=== PATIENT | female | born 1965 | race Caucasian/White ===

== ENCOUNTER 2022-05-17 15:07 | Emergency (ER) | payer OTHER, SELFPAY ==
--- NOTE | 2022-05-17 15:09 | ED_ITS ---
HPI - Allergic Reaction General Chief complaint: General Medical <Gillian Guerrero CNP - Last Filed: 05/17/22 15:21> Stated complaint: ? allergic reaction to meds <Gillian Guerrero CNP - Last Filed: 05/17/22 15:21> Time Seen by Provider: 05/17/22 16:55 <Gillian Guerrero CNP - Last Filed: 05/17/22 15:21> Source: patient <Vikas Garcia MD - Last Filed: 05/18/22 00:23> Mode of arrival: ambulatory <Vikas Garcia MD - Last Filed: 05/18/22 00:23> Limitations: no limitations <Vikas Garcia MD - Last Filed: 05/18/22 00:23> History of Present Illness HPI narrative: Patient 56 years old with history of anxiety, restless leg syndrome on Suboxone started on Akosua for weight reduction she took for scapular 10:00 within half an hour that patient started feeling anxious moving her legs feel funny in her body hot feeling very restless since he took the pills patient never took this pill before no itching no rash <Vikas Garcia MD - Last Filed: 05/18/22 00:23> Related Data Allergies/adverse reactions: Allergies Allergy/AdvReac Type Severity Reaction Status Date / Time ropinirole [From Requip] Allergy Anaphylaxis Verified 05/17/22 15:16 sulfamethoxazole Allergy Hives Verified 05/17/22 15:16 [From Bactrim] tioconazole Allergy Vomiting Verified 05/17/22 15:16 [From Monistat 1 (tioconazole)] trimethoprim [From Bactrim] Allergy Hives Verified 05/17/22 15:16 <Gillian Guerrero CNP - Last Filed: 05/17/22 15:21> Review of Systems Review of Systems: Yes all other systems are reviewed and are negative <Vikas Garcia MD - Last Filed: 05/18/22 00:23> PMFSH Social History Social History: Social History Alcohol intake: current Alcohol intake frequency: holidays/special occasions only Smoked in Last 30 Days: No Use of substances other than those prescribed or required for medical reasons: No Advance Directives: Yes Advance Directives Information Provided: No Advance Directives on File: No <Gillian Rodriguezlouisa Guerrero CNP - Last Filed: 05/17/22 15:21> Physical Exam ED Vital Signs: Vital Signs - 24 hr 05/17/22 15:11 05/17/22 15:55 05/17/22 16:25 Temperature 97.3 F 98.4 F 98.4 F Pulse Rate 86 76 79 Respiratory Rate 18 Blood Pressure 145/94 H 133/83 143/82 H Pulse Oximetry 100 100 98 Oxygen Delivery Method Room Air Room Air Room Air 05/17/22 19:28 Temperature 98.2 F Pulse Rate 76 Respiratory Rate 12 Blood Pressure 107/70 Pulse Oximetry 98 Oxygen Delivery Method Room Air BMI result Body Mass Index 29.2 <Gillian Toscano CECILLE Guerrero - Last Filed: 05/17/22 15:21> Vital Signs - 24 hr 05/17/22 15:11 05/17/22 15:55 05/17/22 16:25 Temperature 97.3 F 98.4 F 98.4 F Pulse Rate 86 76 79 Respiratory Rate 18 Blood Pressure 145/94 H 133/83 143/82 H Pulse Oximetry 100 100 98 Oxygen Delivery Method Room Air Room Air Room Air 05/17/22 19:28 Temperature 98.2 F Pulse Rate 76 Respiratory Rate 12 Blood Pressure 107/70 Pulse Oximetry 98 Oxygen Delivery Method Room Air BMI result Body Mass Index 29.2 <Vikas Garcia MD - Last Filed: 05/18/22 00:23> Appearance: Alert. Oriented X3. No acute distress. Axious Eyes: PERRLA, No Nystagmus ENT: Pharynx normal. Oral Mucosa moist Neck: Normal inspection. Neck supple. CVS: Normal heart rate and rhythm. Pulses normal. Respiratory: No respiratory distress. Equal air entry bilateral, no wheezing/rales/rhonchi Abdomen: Soft and nontender. Bowel sounds are present, Skin: Skin warm and dry. Normal skin color. Normal skin turgor. Extremities: No lower extremity edema. No calf tenderness Neuro: Oriented X 3. No motor deficit. No sensory deficit.No cerebellar signs , cranial nerves II-XII intact <Vikas Garcia MD - Last Filed: 05/18/22 00:23> Course Course Course Narrative: This is an RME: Additional HPI, ROS, PE not included below will be deferred to primary provider. States Clinical Informatics Specialist prescribed Akosua (bupropion/phenteramine/topiramate/naltrexone/methylcobalamin) for WT loss promotion, took for the first time today. took at 0930. About 30 minutes later began feeling hot, then cold, having severe anxiety, foggy , chest tightness, palpitations, legs feel abnormal. She is tearful, states she has never felt like today. She is taking suboxone (to wean off Vicodin) this medication is not new, she toold this after her symptoms began today but is not feeling any better Plan: Lorazepam PO <Gillian Guerrero CNP - Last Filed: 05/17/22 15:21> Medications Administered Discontinued Medications Generic Name Dose Route Start Last Admin Trade Name Freq PRN Reason Stop Dose Admin Diphenhydramine HCl 25 mg 05/17/22 17:17 05/17/22 17:30 Diphenhydramine Hcl 50 Mg/Ml Vial IVPUSH 05/17/22 17:18 25 mg ONCE ONE Administration Sodium Chloride 1,000 mls @ 999 mls/hr 05/17/22 17:19 05/17/22 17:40 Ns IV 05/17/22 18:19 999 mls/hr .Q1H1M ONE Administration Lorazepam 1 mg 05/17/22 15:21 05/17/22 16:17 Lorazepam 1 Mg Tablet PO 05/17/22 15:22 1 mg ONCE ONE Administration Lorazepam 1 mg 05/17/22 17:17 05/17/22 17:30 Lorazepam 2 Mg/Ml Vial IVPUSH 05/17/22 17:18 1 mg ONCE ONE Administration <Gillian Guerrero CNP - Last Filed: 05/17/22 15:21> Medications Administered Discontinued Medications Generic Name Dose Route Start Last Admin Trade Name Freq PRN Reason Stop Dose Admin Diphenhydramine HCl 25 mg 05/17/22 17:17 05/17/22 17:30 Diphenhydramine Hcl 50 Mg/Ml Vial IVPUSH 05/17/22 17:18 25 mg ONCE ONE Administration Sodium Chloride 1,000 mls @ 999 mls/hr 05/17/22 17:19 05/17/22 17:40 Ns IV 05/17/22 18:19 999 mls/hr .Q1H1M ONE Administration Lorazepam 1 mg 05/17/22 15:21 05/17/22 16:17 Lorazepam 1 Mg Tablet PO 05/17/22 15:22 1 mg ONCE ONE Administration Lorazepam 1 mg 05/17/22 17:17 05/17/22 17:30 Lorazepam 2 Mg/Ml Vial IVPUSH 05/17/22 17:18 1 mg ONCE ONE Administration <Vikas Garcia MD - Last Filed: 05/18/22 00:23> Discharge Plan Discharge Clinical Impression: Medication adverse effect <Gillian Guerrero CNP - Last Filed: 05/17/22 15:21> Patient Disposition: Home, Self-Care <Gillian Guerrero CNP - Last Filed: 05/17/22 15:21> Instructions: General Allergic Reaction (ED) <Gillian Guerrero CNP - Last Filed: 05/17/22 15:21> Additional Instructions: Stop taking the new medication for weight reduction Rest at home <Gillian Guerrero CNP - Last Filed: 05/17/22 15:21> Interventions: ED Discharge Assessment Last Done: 05/17/22 19:34 <Gillian Guerrero CNP - Last Filed: 05/17/22 15:21> Discharge Date/Time: 05/17/22 19:35 <Gillian Guerrero CNP - Last Filed: 05/17/22 15:21>
[2022-05-17 15:11] VITALS: BP 145/94; PULSE 86; RESP 18; TEMP 36.3; O2SAT 100; BMI 29.2
[2022-05-17 15:55] VITALS: BP 133/83; PULSE 76; TEMP 36.9; O2SAT 100
--- OUTSIDE RECORDS SUMMARY | 2022-05-17 15:59 | XMS_ITS | Continuity of Care Document ---
:1965 Author Organization Address [address] [place] [address]- Care Team Providers Name Role Phone Not on Staff, PCP Primary Care Physician Unavailable Encounter [facility] Date(s): 07/05/19 - 07/05/[address] [address]- [facility] Attending Physician: Talon Aiken MD Allergies, Adverse Reactions, Alerts Substance Reaction Severity Status sulfa drugs Active Requip tongue swelling Active Monistat Derm burning Active Medications Ambien Tablet = 5 mg, By Mouth, Daily at bedtime, 0 Refills Start Date: 06/08/08 Status: OrderedKlonoPIN 1 mg oral tablet 1 tablet = 1 mg, By Mouth, 2 times a day, PRN Anxiety, 0 Refills, Maintenance, 04/13/17 12:45:58 Start Date: 04/13/17 Status: Orderedlevothyroxine 0.075 mg oral tablet 1 tab, By Mouth, Daily, 0 Refills, Maintenance, 12/08/18 5:34:19 EDT Start Date: 12/08/18 Status: OrderedPaxil Tablet 20 mg, By Mouth, Daily, Maintenance, 01/21/11 22:55:21 Start Date: 01/21/11 Status: OrderedVicodin 5 mg-300 mg oral tablet 2 tablet, By Mouth, Daily at bedtime, 0 Refills, Maintenance, 12/08/18 5:33:48 EDT, Tablet, Partial fill upon patient request Start Date: 12/08/18 Status: Ordered Problem List Condition Effective Dates Status Health Status Informant Rhytide of forehead(Confirmed) Active Social History Social History Type Response Smoking Status Never (less than 100 in life time) entered on: 12/08/18 Sex
--- OUTSIDE RECORDS SUMMARY | 2022-05-17 16:00 | XMS_ITS | Continuity of Care Document ---
:1965 Author Organization [facility] Address [address] [place] [address]- Care Team Providers Name Role Phone Not on Staff, PCP Primary Care Physician Unavailable Encounter [facility] Date(s): 05/15/19 - 05/22/[address] [address]- [facility] Attending Physician: Talon Aiken MD Allergies, Adverse [...]
--- OUTSIDE RECORDS SUMMARY | 2022-05-17 16:00 | XMS_ITS | Continuity of Care Document ---
:1965 Author Organization [facility] Address [address] [place] [address]- Care Team Providers Name Role Phone Talon Aiken MD Primary Care Physician Encounter [facility] Date(s): 06/06/21 - 07/06/21 [facility] [address], [place] [address] Allergies, Adverse Reactions, Alerts Substance Reaction Severity [...]
[2022-05-17] MEDS: LORazepam 1 MG TABLET PO (16:17)
[2022-05-17 16:25] VITALS: BP 143/82; PULSE 79; TEMP 36.9; O2SAT 98
[2022-05-17] MEDS: LORazepam 2 MG/ML VIAL 1 MG IVPUSH (17:30)
[2022-05-17] MEDS: diphenhydrAMINE HCL 50 MG/ML VIAL 25 MG IVPUSH (17:30)
[2022-05-17] MEDS: 0.9 % Sodium Chloride 1,000 ML 999 ML IV (17:40)
[2022-05-17 19:28] VITALS: BP 107/70; PULSE 76; RESP 12; TEMP 36.8; O2SAT 98
== END 2022-05-17 19:35 | disposition home or self-care (01) ==
PROVIDERS: Emergency Provider Internal Medicine; PCP Internal Medicine
DX: L50.0 Allergic urticaria (principal); G25.81 Restless legs syndrome; Z79.899 Other long term (current) drug therapy
CPT/HCPCS: 96361; 96374; 96375; 99284; J1200; J2060